=== PATIENT | male | born 1940 | race Caucasian/White ===

== ENCOUNTER → 2017-11-30 | Outpatient (CLI) | payer MEDICARE, OTHER ==
[2017-11-30 12:23] LABS: BASO % 0.7 % (0.0-1.0); EOS # 0.2 10^3/uL (0.0-0.50); EOS % 3.7 % (0.0-3.0); HEMATOCRIT 35.4 % (42.0-52.0); HEMOGLOBIN 11.4 g/dl (13.5-17.5); IMMATURE GRANULOCYTE % 0.5 % (0-3.0); LYMPH # 0.8 10^3/uL (1.5-4.5); LYMPH % 13.7 % (24.0-44.0); MEAN CORPUSCULAR HEMOGLOBIN 30.6 pg (27.0-33.0); MEAN CORPUSCULAR HGB CONC 32.2 g/dl (32.0-36.5); MEAN CORPUSCULAR VOLUME 94.9 fl (80.0-96.0); MONO # 0.7 10^3/uL (0.0-0.8); MONO % 12.1 % (0.0-5.0); NEUTROPHILS # 3.9 10^3/uL (1.8-7.7); NEUTROPHILS % 69.3 % (36.0-66.0); PLATELET COUNT, AUTOMATED 217 10^3/uL (150-450); RED BLOOD COUNT 3.73 10^6/uL (4.30-6.10); RED CELL DISTRIBUTION WIDTH 13.9 % (11.5-14.5); WHITE BLOOD COUNT 5.7 10^3/uL (4.0-10.0)
[2017-11-30 13:02] LABS: ALBUMIN/GLOBULIN RATIO 1.38 (1.00-1.93); ALKALINE PHOSPHATASE 55 U/L (45-117); ALT/SGPT 25 U/L (12-78); ANION GAP 5 MEQ/L (8-16); AST/SGOT 12 U/L (7-37); BILIRUBIN,TOTAL 0.5 MG/DL (0.2-1.0); BLOOD UREA NITROGEN 22 MG/DL (7-18); CALCIUM LEVEL 9.1 MG/DL (8.8-10.2); CARBON DIOXIDE LEVEL 26 MEQ/L (21-32); CHLORIDE LEVEL 108 MEQ/L (98-107); GLOMERULAR FILTRATION RATE > 60.0 (>42); GLUCOSE, FASTING 248 MG/DL (70-100); POTASSIUM SERUM 5.1 MEQ/L (3.5-5.1); SODIUM LEVEL 139 MEQ/L (136-145); TOTAL PROTEIN 6.9 GM/DL (6.4-8.2)
== END ==
LOC: M WUC 09:40
DX: I47.9 Paroxysmal tachycardia, unspecified (principal)
CPT/HCPCS: 83735

== ENCOUNTER → 2018-01-18 | Outpatient (REF) | payer MEDICARE, OTHER ==
[2018-01-18 18:07] LABS: ESTIMATED AVERAGE GLUCOSE 143 MG/DL (60-110); HEMOGLOBIN A1c 6.6 %
[2018-01-18 18:09] LABS: ALBUMIN 3.9 GM/DL (3.2-5.2); ALBUMIN/GLOBULIN RATIO 1.34 (1.00-1.93); ALKALINE PHOSPHATASE 55 U/L (45-117); ALT/SGPT 33 U/L (12-78); AST/SGOT 15 U/L (7-37); BILIRUBIN,DIRECT 0.1 MG/DL (0.0-0.2); BILIRUBIN,TOTAL 0.5 MG/DL (0.2-1.0); CHOLESTEROL LEVEL 120 MG/DL (<200); CHOLESTEROL RISK RATIO 2.608 (<5); HDL CHOLESTEROL 46 MG/DL (>40); NON-HDL-C 74 MG/DL; TOTAL PROTEIN 6.8 GM/DL (6.4-8.2); TRIGLYCERIDES LEVEL 65 MG/DL (<150)
== END ==
LOC: M LABDRWCV 16:52
DX: E78.5 Hyperlipidemia, unspecified (principal); Z71.3 Dietary counseling and surveillance; Z79.899 Other long term (current) drug therapy
CPT/HCPCS: 80076

== ENCOUNTER → 2020-01-09 | Outpatient (REF) | payer MEDICARE, OTHER ==
[~2020-01-09] MED LIST: GLIP5TAB8 PO; JARD1TAB PO; LOSA100T50 PO; METF10004 PO; METO1TAB7 PO; SIMV40TA20 PO
[2020-01-09 13:34] LABS: TOTAL PROTEIN 6.5 GM/DL (6.4-8.2); VITAMIN B12 LEVEL 363 PG/ML (247-911)
[2020-01-10 18:13] LABS: ANA (HEP2) Negative (.)
[2020-01-14 15:46] LABS: ALBUMIN 4.17 GM/DL (3.29-5.55); ALBUMIN % 64.1 % (55.8-66.1); ALPHA-1-GLOBULINS 0.26 GM/DL (0.17-0.41); ALPHA-2-GLOBULINS 0.79 GM/DL (0.42-0.99); ALPHA-2-GLOBULINS % 12.2 % (7.1-11.8); BETA-1-GLOBULINS % 6.1 % (4.7-7.2); BETA-2-GLOBULINS 0.25 GM/DL (0.19-0.55); BETA-2-GLOBULINS % 3.8 % (3.2-6.5); GAMMA GLOBULIN % 9.8 % (11.1-18.8); GAMMA GLOBULINS 0.64 GM/DL (0.65-1.58)
== END ==
LOC: M LABDRAWC 11:24
DX: G62.9 Polyneuropathy, unspecified (principal)

== ENCOUNTER → 2020-01-20 | Outpatient (REF) | payer MEDICARE, OTHER | LOC: M LAB REF 19:00 | PROVIDERS: ATTEND Dermatology | DX: L57.0 Actinic keratosis (principal); Z79.899 Other long term (current) drug therapy ==

== ENCOUNTER → 2020-01-20 | Outpatient (REF) | payer MEDICARE, OTHER ==
[2020-01-20 17:12] LABS: HEMOGLOBIN A1c 6.7 %
== END ==
LOC: M LABDRAWC 11:38
DX: E11.9 Type 2 diabetes mellitus without complications (principal)